=== PATIENT | male | born 1985 | race Caucasian/White ===

== ENCOUNTER 2018-05-02 08:45 | Inpatient (IN) | payer OTHER ==
[2018-05-02 09:20] VITALS: BMI 27.9
--- NOTE | 2018-05-02 09:29 | HP ---
COWS - Scale Resting Pulse: 1= [place] 81-100 Sweatin= Chills/Flushing Restless Observation: 0= Sits Still Pupil Size: 0= Normal to Room Light Bone or Joint Aches: 1= Mild Discomfort Runny Nose/ Eye Tearin= Nasal Congestion GI Upset > 30mins: 1= Stomach Cramp Tremor Observation: 2= Slight Tremor Visible Yawning Observation: 1= 1-2x During Session Anxiety or Irritability: 2=Irritable/Anxious Goose Flesh Skin: 0=Smooth Skin COWS Score: 10 CIWA Score Nausea/Vomitin Muscle Tremors: 3 Anxiety: 4-Mod. Anxious/Guarded Agitation: 0-Normal Activity Paroxysmal Sweats: 1-Minimal Palms Moist Orientation: 1-Uncertain about Date Tacttile Disturbances: 1-Very Mild Itch/Numbness Auditory Disturbances: 1-Very Mild Visual Disturbances: 1-Very Mild Sensitivity Headache: 2-Mild CIWA-Ar Total Score: 16 - Admission Criteria Patient presents the following: CIWA greater than 12 Admission Criteria Met: Admission criteria met Admission ROS [facility] - HPI Chief Complaint: I'm miserable , I don't want to live like this anymore, I want the poison out of my body Allergies/Adverse Reactions: Allergies Allergy/AdvReac Type Severity Reaction Status Date / Time Fish Containing Products Allergy Intermediate Swelling Verified 05/02/18 09:24 shrimp Allergy Intermediate Swelling Verified 05/02/18 09:23 No Known Drug Allergies Allergy Verified 05/02/18 10:00 History of Present Illness: 32 yo gentleman her for detox from opiates and benzodiazepines, also using cocaine and marijuana. Patient reports detox two months ago at [facility], [place], he did not f/u with the outpatient program recommended. States never on MAT. He denies seizures but has had black outs and several overdoses. He is currently homeless. First time here. Exam Limitations: Clinical Condition - Ebola screening Have you traveled outside of the country in the last 21 days: No (N) Have you had contact with anyone from an Ebola affected area: No Have you been sick,other than usual withdrawal symptoms: No Do you have a fever: No - Review of Systems Constitutional: Loss of Appetite, Malaise, Night Sweats, Weakness EENT: reports: Blurred Vision, Nose Congestion Respiratory: reports: No Symptoms reported Cardiac: reports: No Symptoms Reported GI: reports: Nausea, Poor Appetite, Abdominal cramping : reports: Dysuria Musculoskeletal: reports: Back Pain, Muscle Pain Integumentary: reports: No Symptoms Reported Neuro: reports: Headache Endocrine: reports: No Symptoms Reported Hematology: reports: No Symptoms Reported Psychiatric: reports: Judgement Intact, Mood/Affect Appropiate, Orientated x3, Anxious Other Systems: Reviewed and Negative Patient History - Patient Medical History Hx Asthma: No Hx Chronic Obstructive Pulmonary Disease (COPD): No Hx Cancer: No Hx Cardiac Disorders: No Hx Congestive Heart Failure: No Hx Hypertension: No Hx Hypercholesterolemia: No Hx Pacemaker: No HX Cerebrovascular Accident: No Hx Seizures: No Hx Diabetes: No Hx Gastrointestinal Disorders: No Hx Liver Disease: No (hep C) Hx Genitourinary Disorders: No Hx Sexually Transmitted Disorders: No Hx Renal Disease (ESRD): No Hx Thyroid Disease: No Hx Human Immunodeficiency Virus (HIV): No Hx Hepatitis C: Yes (not treated) Hx Depression: No Hx Suicide Attempt: No (denies) Hx Bipolar Disorder: No Hx Schizophrenia: No - Patient Surgical History Past Surgical History: No - PPD History Previous Implant?: Yes Documented Results: Negative w/o proof Implanted On Prior [facility] Admission?: No PPD to be Administered?: Yes - Reproductive History Patient is a Female of Child Bearing Age (11 -55 yrs old): No (male) - Smoking Cessation Smoking history: Current every day smoker Have you smoked in the past 12 months: Yes Aproximately how many cigarettes per day: 20 Initiated information on smoking cessation: Yes 'Breaking Loose' booklet given: 05/02/18 (give on floor) - Substance & Tx. History Hx Alcohol Use: No Hx Substance Use: Yes Substance Use Type: Cocaine, Marijuana, Opiates, Tranquilizers Hx Substance Use Treatment: Yes (detox, ) - Substances Abused heroin Route: Injection Frequency: Daily Amount used: 11 bags Age of first use: 27 Date of Last Use: 05/01/18 cocaine Route: Inhalation Frequency: 3-6 times per week Amount used: 2 bags Age of first use: 27 Date of Last Use: 05/01/18 non rx methadone Route: Oral Frequency: 1-2 times per week Amount used: 30mg Age of first use: 28 Date of Last Use: 04/29/18 alprazolam Route: Oral Frequency: Daily Amount used: four 4mg sticks Age of first use: 28 Date of Last Use: 05/01/18 marijuan Route: Smoking Frequency: Daily Amount used: 1 blunt Age of first use: 12 Date of Last Use: 05/01/18 Family Disease History - Family Disease History Family Disease History: Other: Father (, etoh/cirrhosis), Mother (living , healthy), Sister (two - healthy) Admission Physical Exam [facility] - Vital Signs Vital Signs: Vital Signs - 24 hr 05/02/18 09:16 Temperature 98.2 F Pulse Rate 101 H Respiratory 17 Rate Blood Pressure 136/85 - Physical General Appearance: Yes: Nourished, Appropriately Dressed, Moderate Distress, Anxious HEENTM: Yes: EOMI, Hearing grossly Normal, Normocephalic, Normal Voice, Nasal Congestion Respiratory: Yes: No Respiratory Distress, Wheezing Neck: Yes: No masses,lesions,Nodules, Supple Breast: Yes: Breast Exam Deferred Cardiology: Yes: Regular Rhythm, Tachycardia Abdominal: Yes: Non Tender, Soft Genitourinary: Yes: Dysuria Back: Yes: Normal Inspection Musculoskeletal: Yes: full range of Motion, Gait Steady, Back pain, Muscle Pain Extremities: Yes: Normal Inspection, Normal Range of Motion, Non-Tender Neurological: Yes: Fully Oriented, Alert, Motor Strength 5/5, Normal Mood/Affect , Normal Response Integumentary: Yes: Normal Color, Warm, Track Velázquez (both arms, no abscess noted ) Lymphatic: Yes: Within Normal Limits - Diagnostic (1) Opioid dependence with withdrawal Current Visit: Yes Status: Acute (2) Sedative, hypnotic or anxiolytic dependence, uncomplicated Current Visit: Yes Status: Acute (3) Cannabis dependence Current Visit: Yes Status: Acute (4) Cocaine abuse Current Visit: Yes Status: Acute (5) Nicotine dependence Current Visit: Yes Status: Acute (6) Hepatitis C Current Visit: Yes Status: Acute Qualifiers: Viral hepatitis chronicity: chronic Hepatic coma status: without hepatic coma Qualified Code(s): B18.2 - Chronic viral hepatitis C Comment: not treated Cleared for Admission [facility] - Detox or Rehab [facility] Level of Care: Medically Managed Detox Regimen/Protocol: Methadone/Valium [facility] Breath Alcohol Content Breath Alcohol Content: 0 Urine Drug Screen - Results Drug Screen Negative: No Urine Drug Screen Results: THC-Marijuana, MADELEINE-Cocaine, OPI-Opiates, BZO- Benzodiazepines, MTD-Methadone, FEN-Fentanyl Inpatient Rehab Admission - Rehab Decision to Admit Inpatient rehab admission?: No
[2018-05-02] MEDS ORDERED: MAGNESIUM CITRATE 300 ML BOTTLE PO PRN (09:41)
[2018-05-02] MEDS ORDERED: guaiFENesin/D-METHORPHAN HB 10 ML UNIT-DOSE CUPS PO PRN (09:41)
[2018-05-02] MEDS ORDERED: MAGNESIUM HYDROX 2400MG/30ML ORAL SUSPENSION 30 ML CUP PO PRN (09:41)
[2018-05-02] MEDS ORDERED: ACETAMINOPHEN 325 MG TABLET (FP) PO PRN (09:41)
[2018-05-02] MEDS ORDERED: P-EPHED 60MG/TRIPROLIDI 2.5MG TABLET PO PRN (09:41)
[2018-05-02] MEDS ORDERED: IBUPROFEN 400 MG TABLET (FP) PO PRN (09:41)
[2018-05-02] MEDS ORDERED: LOPERAMIDE HCL 2 MG CAPSULE PO PRN (09:41)
[2018-05-02] MEDS ORDERED: MENTHOL/PHENOL 1 EACH UD MM PRN (09:41)
[2018-05-02] MEDS ORDERED: METHADONE HCL 10 MG TABLET (FOR DETOX USE ONLY) PO ONE ×2 (09:41→23:00)
[2018-05-02] MEDS ORDERED: MAG HYDROX/AL HYDROX/SIMETH 30 ML UNIT-DOSE CUP PO PRN (09:41)
[2018-05-02] MEDS ORDERED: diazePAM 5 MG TABLET PO ONE (10:30)
[2018-05-02] MEDS: PRENATAL VITAMINS W/ FOLIC ACID TABLET (FP) PO SCH (11:37)
[2018-05-02] MEDS: NICOTINE 21 MG/24 HOURS TOPICAL PATCH TD SCH (11:44)
[2018-05-02] MEDS: diazePAM 5 MG TABLET PO SCH ×2 (14:00→22:42)
--- NOTE | 2018-05-02 14:43 | EKG ---
Test Reason : Blood Pressure : / mmHG Vent. Rate : 083 BPM Atrial Rate : 083 BPM P-R Int : 158 ms QRS Dur : 098 ms QT Int : 358 ms P-R-T Axes : 072 079 057 degrees QTc Int : 420 ms NORMAL SINUS RHYTHM NORMAL ECG NO PREVIOUS ECGS AVAILABLE Confirmed by Abimael Martin MD ([id number]) on 05/02/2018 2:43:36 PM Referred By: Confirmed By:Abimael Martin MD
[2018-05-02 17:42] LABS: URINE APPEARANCE SLCLOUDY; URINE BILIRUBIN NEGATIVE (<2.0 mg/dL); URINE COLOR AMBER; URINE GLUCOSE (UA) NEGATIVE (NEGATIVE); URINE KETONE NEGATIVE (NEGATIVE); URINE LEUK ESTERASE TRACE (NEGATIVE); URINE NITRITE NEGATIVE (NEGATIVE); URINE PROTEIN 2+ (NEGATIVE)
[2018-05-02 17:44] LABS: CALCIUM OXALATE CRYSTALS FEW /hpf (NONE SEEN); EPI CELLS RARE /HPF (FEW); URINE MUCUS MODERATE
[2018-05-02] MEDS ORDERED: MELATONIN 5 MG TABLETS PO PRN (22:00)
[2018-05-02] MEDS: THIAMINE HCL 100 MG TABLET (FP) PO SCH (22:42)
[2018-05-03] MEDS: diazePAM 5 MG TABLET PO SCH ×3 (05:20→22:18)
[2018-05-03] MEDS ORDERED: METHADONE HCL 10 MG TABLET (FOR DETOX USE ONLY) PO SCH (10:00)
[2018-05-03] MEDS: PRENATAL VITAMINS W/ FOLIC ACID TABLET (FP) PO SCH (10:02)
[2018-05-03] MEDS: NICOTINE 21 MG/24 HOURS TOPICAL PATCH TD SCH (10:03)
[2018-05-03 10:16] LABS: HEMATOCRIT 43.2 % (35.4-49); HEMOGLOBIN 14.5 GM/dL (11.7-16.9); MCH 29.5 pg (25.7-33.7); MCHC 33.6 g/dl (32.0-35.9); MEAN CELL VOLUME 87.7 fl (80-96); MEAN PLT VOLUME 8.4 fl (7.5-11.1); PLATELET COUNT 254 K/MM3 (134-434); RBC 4.92 M/mm3 (4.00-5.60); RDW 14.5 % (11.9-15.9); WHITE BLOOD COUNT 8.7 K/mm3 (4.0-10.0)
[2018-05-03 10:18] LABS: ALBUMIN 3.5 g/dl (3.4-5.0); ALK PHOS 68 U/L (45-117); ANION GAP 5 MMOL/L (8-16); BILIRUBIN,TOTAL 0.3 mg/dL (0.2-1); BLOOD UREA NITROGEN 13 mg/dL (7-18); CALCIUM 8.4 mg/dL (8.5-10.1); CHLORIDE 101 mmol/L (98-107); CO2 32 mmol/L (21-32); CREATININE 0.7 mg/dL (0.55-1.3); GLUCOSE,RANDOM 85 mg/dL (74-106); POTASSIUM 4.1 mmol/L (3.5-5.1); SGOT/AST 51 U/L (15-37); SGPT/ALT 100 U/L (13-61); SODIUM 137 mmol/L (136-145); TOT PROT 6.6 g/dl (6.4-8.2)
--- NOTE | 2018-05-03 11:07 | PN ---
[facility] CIWA - CIWA Score Nausea/Vomitin-Mild Nausea/No Vomiting Muscle Tremors: 3 Anxiety: 2 Agitation: 3 Paroxysmal Sweats: 1-Minimal Palms Moist Orientation: 1-Uncertain about Date Tacttile Disturbances: 0-None Auditory Disturbances: 0-None Visual Disturbances: 0-None Headache: 1-Very Mild CIWA-Ar Total Score: 12 S COWS - Scale Resting Pulse: 0= [place] 80 or Below Sweatin= Chills/Flushing Restless Observation: 0= Sits Still Pupil Size: 0= Normal to Room Light Bone or Joint Aches: 1= Mild Discomfort Runny Nose/ Eye Tearin= Nasal Congestion GI Upset > 30mins: 2= Nausea/Diarrhea Tremor Observation of Outstretched Hands: 1= Tremor [place], Not Seen Yawning Observation: 1= 1-2x During Session Anxiety or Irritability: 1=Feels Anxious/Irritable Goose Flesh Skin: 0=Smooth Skin COWS Score: 8 [facility] Progress Note (SOAP) Subjective: body aches muscle cramping tremor sweating Objective: 05/03/18 11:06 Vital Signs Temperature 97.7 F 05/03/18 09:21 Pulse Rate 57 L 05/03/18 09:21 Respiratory Rate 16 05/03/18 09:21 Blood Pressure 102/62 05/03/18 09:21 O2 Sat by Pulse Oximetry (%) Laboratory Last Values WBC 8.7 K/mm3 (4.0-10.0) 05/03/18 07:45 RBC 4.92 M/mm3 (4.00-5.60) 05/03/18 07:45 Hgb 14.5 GM/dL (11.7-16.9) 05/03/18 07:45 Hct 43.2 % (35.4-49) 05/03/18 07:45 MCV 87.7 fl (80-96) 05/03/18 07:45 MCH 29.5 pg (25.7-33.7) 05/03/18 07:45 MCHC 33.6 g/dl (32.0-35.9) 05/03/18 07:45 RDW 14.5 % (11.9-15.9) 05/03/18 07:45 Plt Count 254 K/MM3 (134-434) 05/03/18 07:45 MPV 8.4 fl (7.5-11.1) 05/03/18 07:45 Sodium 137 mmol/L (136-145) 05/03/18 07:45 Potassium 4.1 mmol/L (3.5-5.1) 05/03/18 07:45 Chloride 101 mmol/L (98-107) 05/03/18 07:45 Carbon Dioxide 32 mmol/L (21-32) 05/03/18 07:45 Anion Gap 5 MMOL/L (8-16) L 05/03/18 07:45 BUN 13 mg/dL (7-18) 05/03/18 07:45 Creatinine 0.7 mg/dL (0.55-1.3) 05/03/18 07:45 Creat Clearance w eGFR > 60 (>60) 05/03/18 07:45 Random Glucose 85 mg/dL (74-106) 05/03/18 07:45 Calcium 8.4 mg/dL (8.5-10.1) L 05/03/18 07:45 Total Bilirubin 0.3 mg/dL (0.2-1) 05/03/18 07:45 AST 51 U/L (15-37) H 05/03/18 07:45 ALT 100 U/L (13-61) H 05/03/18 07:45 Alkaline Phosphatase 68 U/L (45-117) 05/03/18 07:45 Total Protein 6.6 g/dl (6.4-8.2) 05/03/18 07:45 Albumin 3.5 g/dl (3.4-5.0) 05/03/18 07:45 Urine Color Cee 05/02/18 16:41 Urine Appearance Slcloudy 05/02/18 16:41 Urine pH 5.0 (5.0-8.0) 05/02/18 16:41 Ur Specific [place] 1.026 (1.010-1.035) 05/02/18 16:41 Urine Protein 2+ (NEGATIVE) H 05/02/18 16:41 Urine Glucose (UA) Negative (NEGATIVE) 05/02/18 16:41 Urine Ketones Negative (NEGATIVE) 05/02/18 16:41 Urine Blood 1+ (NEGATIVE) H 05/02/18 16:41 Urine Nitrite Negative (NEGATIVE) 05/02/18 16:41 Urine Bilirubin Negative (<2.0 mg/dL) 05/02/18 16:41 Urine Urobilinogen 2.0 mg/dL (0.2-1.0) 05/02/18 16:41 Ur Leukocyte Esterase Trace (NEGATIVE) 05/02/18 16:41 Urine WBC (Auto) 15 /hpf (3-5) 05/02/18 16:41 Urine RBC (Auto) 33 /hpf (0-3) 05/02/18 16:41 Ur Epithelial Cells Rare /HPF (FEW) 05/02/18 16:41 Calcium Oxalate Crystal Few /hpf (NONE SEEN) 05/02/18 16:41 Urine Mucus Moderate 05/02/18 16:41 lab noted uti Assessment: 05/03/18 11:07 withdrawal sx uti Plan: continue detox bactrium ds bid
[2018-05-03] MEDS: SULFAMETHOXAZOLE/TRIMETHOPRIM 800MG/160MG D.S. TABLET PO SCH ×2 (15:04→22:18)
[2018-05-03] MEDS: THIAMINE HCL 100 MG TABLET (FP) PO SCH (22:17)
[2018-05-04] MEDS ORDERED: METHADONE HCL 5 MG TABLET (FOR DETOX USE ONLY) PO SCH (10:00)
[2018-05-04] MEDS: PRENATAL VITAMINS W/ FOLIC ACID TABLET (FP) PO SCH (10:28)
[2018-05-04] MEDS: diazePAM 5 MG TABLET PO SCH ×2 (10:29→22:33)
[2018-05-04] MEDS: SULFAMETHOXAZOLE/TRIMETHOPRIM 800MG/160MG D.S. TABLET PO SCH ×2 (10:29→22:33)
[2018-05-04] MEDS: NICOTINE 21 MG/24 HOURS TOPICAL PATCH TD SCH (10:31)
[2018-05-04] MEDS: diazePAM 5 MG TABLET PO PRN ×2 (13:05→19:16)
--- NOTE | 2018-05-04 13:32 | PN ---
[facility] CIWA - CIWA Score Nausea/Vomitin-No Nausea/No Vomiting Muscle Tremors: 3 Anxiety: 2 Agitation: 3 Paroxysmal Sweats: 1-Minimal Palms Moist Orientation: 0-Oriented Tacttile Disturbances: 0-None Auditory Disturbances: 0-None Visual Disturbances: 0-None Headache: 2-Mild CIWA-Ar Total Score: 11 [facility] COWS - Scale Resting Pulse: 0= [place] 80 or Below Sweatin= Chills/Flushing Restless Observation: 0= Sits Still Pupil Size: 0= Normal to Room Light Bone or Joint Aches: 1= Mild Discomfort Runny Nose/ Eye Tearin= Nasal Congestion GI Upset > 30mins: 1= Stomach Cramp Tremor Observation of Outstretched Hands: 1= Tremor [place], Not Seen Yawning Observation: 1= 1-2x During Session Anxiety or Irritability: 1=Feels Anxious/Irritable Goose Flesh Skin: 0=Smooth Skin COWS Score: 7 S Progress Note (SOAP) Subjective: body aches anxiety tremor Objective: 05/04/18 13:45 Vital Signs Temperature 98.8 F 05/04/18 13:37 Pulse Rate 62 05/04/18 13:37 Respiratory Rate 17 05/04/18 13:37 Blood Pressure 125/73 05/04/18 13:37 O2 Sat by Pulse Oximetry (%) Laboratory Last Values WBC 8.7 K/mm3 (4.0-10.0) 05/03/18 07:45 RBC 4.92 M/mm3 (4.00-5.60) 05/03/18 07:45 Hgb 14.5 GM/dL (11.7-16.9) 05/03/18 07:45 Hct 43.2 % (35.4-49) 05/03/18 07:45 MCV 87.7 fl (80-96) 05/03/18 07:45 MCH 29.5 pg (25.7-33.7) 05/03/18 07:45 MCHC 33.6 g/dl (32.0-35.9) 05/03/18 07:45 RDW 14.5 % (11.9-15.9) 05/03/18 07:45 Plt Count 254 K/MM3 (134-434) 05/03/18 07:45 MPV 8.4 fl (7.5-11.1) 05/03/18 07:45 Sodium 137 mmol/L (136-145) 05/03/18 07:45 Potassium 4.1 mmol/L (3.5-5.1) 05/03/18 07:45 Chloride 101 mmol/L (98-107) 05/03/18 07:45 Carbon Dioxide 32 mmol/L (21-32) 05/03/18 07:45 Anion Gap 5 MMOL/L (8-16) L 05/03/18 07:45 BUN 13 mg/dL (7-18) 05/03/18 07:45 Creatinine 0.7 mg/dL (0.55-1.3) 05/03/18 07:45 Creat Clearance w eGFR > 60 (>60) 05/03/18 07:45 Random Glucose 85 mg/dL (74-106) 05/03/18 07:45 Calcium 8.4 mg/dL (8.5-10.1) L 05/03/18 07:45 Total Bilirubin 0.3 mg/dL (0.2-1) 05/03/18 07:45 AST 51 U/L (15-37) H 05/03/18 07:45 ALT 100 U/L (13-61) H 05/03/18 07:45 Alkaline Phosphatase 68 U/L (45-117) 05/03/18 07:45 Total Protein 6.6 g/dl (6.4-8.2) 05/03/18 07:45 Albumin 3.5 g/dl (3.4-5.0) 05/03/18 07:45 Urine Color Cee 05/02/18 16:41 Urine Appearance Slcloudy 05/02/18 16:41 Urine pH 5.0 (5.0-8.0) 05/02/18 16:41 Ur Specific [place] 1.026 (1.010-1.035) 05/02/18 16:41 Urine Protein 2+ (NEGATIVE) H 05/02/18 16:41 Urine Glucose (UA) Negative (NEGATIVE) 05/02/18 16:41 Urine Ketones Negative (NEGATIVE) 05/02/18 16:41 Urine Blood 1+ (NEGATIVE) H 05/02/18 16:41 Urine Nitrite Negative (NEGATIVE) 05/02/18 16:41 Urine Bilirubin Negative (<2.0 mg/dL) 05/02/18 16:41 Urine Urobilinogen 2.0 mg/dL (0.2-1.0) 05/02/18 16:41 Ur Leukocyte Esterase Trace (NEGATIVE) 05/02/18 16:41 Urine WBC (Auto) 15 /hpf (3-5) 05/02/18 16:41 Urine RBC (Auto) 33 /hpf (0-3) 05/02/18 16:41 Ur Epithelial Cells Rare /HPF (FEW) 05/02/18 16:41 Calcium Oxalate Crystal Few /hpf (NONE SEEN) 05/02/18 16:41 Urine Mucus Moderate 05/02/18 16:41 RPR Titer Nonreactive (NONREACTIVE) 05/03/18 07:45 HIV 1&2 Antibody Screen Negative 05/03/18 07:45 HIV P24 Antigen Negative 05/03/18 07:45 lab noted uti continue bactrim ds Assessment: 05/04/18 13:39 withdrawal sx Plan: continue detox
[2018-05-04] MEDS: THIAMINE HCL 100 MG TABLET (FP) PO SCH (22:33)
[2018-05-05] MEDS: diazePAM 5 MG TABLET PO PRN (08:52)
[2018-05-05 09:09] VITALS: BP 135/85; PULSE 106; TEMP 98.7
--- NOTE | 2018-05-05 13:01 | DS ---
[facility] Detox Discharge Summary Admission Date: 05/02/18 Discharge Date: 05/05/18 - History Present History: Opioid Dependence, Sedative Dependence Additional Comments: 32 years old male admitted on 05/02/18 for benzo and opiate withdrawal stabilization girlfriend transferred from 6N to 3N today had an argument with the girlfriend both were yelling and threatening behavior to objects patient was unable to stop yelling and threatening with the furnitures security was called and patient insists to leave the detox unit with his girlfriend patient is alert denies suicidal ideation Pertinent Past History: encourage 12 step community self help group - Physical Exam Results Vital Signs: Vital Signs Temperature 98.7 F 05/05/18 09:08 Pulse Rate 106 H 05/05/18 09:08 Respiratory Rate 18 05/05/18 09:08 Blood Pressure 135/85 05/05/18 09:08 O2 Sat by Pulse Oximetry (%) Pertinent Admission Physical Exam Findings: benzo and opiate withdrawal sx - Treatment Hospital Course: Detox Protocol Followed, Responded well Patient has Accepted a Rehab Referral to: as per counselor arrangement - Medication Discharge Medications: Ambulatory Orders NK [No Known Home Medication] 05/02/18 - Diagnosis (1) Hepatitis C Status: Chronic Qualifiers: Viral hepatitis chronicity: chronic Hepatic coma status: without hepatic coma Qualified Code(s): B18.2 - Chronic viral hepatitis C (2) Nicotine dependence Status: Acute Qualifiers: Nicotine product type: cigarettes Substance use status: in withdrawal Qualified Code(s): F17.213 - Nicotine dependence, cigarettes, with withdrawal (3) Opioid dependence with withdrawal Status: Acute (4) Sedative, hypnotic or anxiolytic dependence, uncomplicated Status: Acute - AMA Did Patient Leave Against Medical Advice: Yes
[2018-05-06] MEDS ORDERED: diazePAM 5 MG TABLET PO SCH (10:00)
[2018-05-06] MEDS ORDERED: METHADONE HCL 10 MG TABLET (FOR DETOX USE ONLY) PO SCH (10:00)
[2018-05-07] MEDS ORDERED: METHADONE HCL 5 MG TABLET (FOR DETOX USE ONLY) PO SCH (06:00)
== END 2018-05-05 09:52 | disposition left against medical advice (07) | DRG 770 ==
LOC: YASAS 08:45 → Y3N 09:43
PROVIDERS: ADMIT Surgery; ATTEND Surgery
PROC: HZ2ZZZZ Detoxification Services for Substance Abuse Treatment (ICD-10-PCS; principal; 2018-05-02)
DX: F11.23 Opioid dependence with withdrawal (principal); F13.230 Sedative, hypnotic or anxiolytic dependence with withdrawal, uncomplicated; F12.10 Cannabis abuse, uncomplicated; F17.213 Nicotine dependence, cigarettes, with withdrawal; B18.2 Chronic viral hepatitis C; N39.0 Urinary tract infection, site not specified; R00.0 Tachycardia, unspecified; Z91.013 Allergy to seafood
CPT/HCPCS: 36415; 80053; 81003; 81015; 85027; 86593; 87389; 93005; 93010